=== PATIENT | female | born 1960 | race Caucasian/White ===

== ENCOUNTER 2024-07-05 00:24 | Inpatient (IN) | payer MEDICAID ==
[~2024-07-05] VITALS: Ht 154.9 cm; Wt 53.3 kg
[2024-07-06] MEDS ORDERED: HALOPERIDOL 5 MG TABLET PO PRN (00:45)
[2024-07-06] MEDS ORDERED: LORazepam 2 MG TABLET PO PRN (00:45)
[2024-07-06] MEDS ORDERED: ZOLPIDEM TARTRATE 10 MG TABLET PO PRN (00:45)
[2024-07-06 01:40] LABS: GLUCOMETER DEV NAME(LOC) POC.BV; POC SARS-COV2 AG, FIA NEGATIVE (NEGATIVE)
[2024-07-06 02:09] VITALS: BP 150/68; PULSE 54; RESP 18; TEMP 96.8; O2SAT 98
[2024-07-06] MEDS ORDERED: ONDANSETRON 4 MG TABLET PO PRN (06:00)
[2024-07-06] MEDS ORDERED: IBUPROFEN 600 MG TABLET PO PRN (06:00)
[2024-07-06] MEDS ORDERED: OMEPRAZOLE 20 MG CAPSULE PO PRN (06:00)
[2024-07-06] MEDS ORDERED: ACETAMINOPHEN 325 MG TABLET PO PRN (06:00)
[2024-07-06] MEDS ORDERED: MAGNESIUM HYDROXIDE SUSPENSION 30 ML UDCUP PO PRN (06:00)
[2024-07-06] MEDS ORDERED: DOCUSATE SODIUM 100 MG CAPSULE PO PRN (06:00)
[2024-07-06] MEDS ORDERED: BENZOCAINE/MENTHOL LOZENGE PO PRN (06:00)
[2024-07-06] MEDS ORDERED: MAG HYDROX/ALUMINUM HYD/SIMETH ES 30 ML SUSPENSION UDCUP PO PRN (06:00)
[2024-07-06] MEDS ORDERED: ALBUTEROL SULFATE HFA 90 MCG/PUFF 8 GM INHALER IH PRN (06:00)
[2024-07-06] MEDS ORDERED: CloNIDine HCL 0.1 MG TABLET PO PRN (06:00)
[2024-07-06] MEDS ORDERED: LOPERAMIDE HCL 2 MG CAPSULE PO PRN (06:00)
[2024-07-06] MEDS ORDERED: PETROLATUM,WHITE 28 GM JELLY TP PRN (06:00)
[2024-07-06] MEDS ORDERED: BACITRACIN 28 GM OINTMENT TP PRN (06:00)
[2024-07-06 08:21] VITALS: BP 141/73; PULSE 69; RESP 16; TEMP 96.9; O2SAT 97
[2024-07-06] MEDS: INFLUENZA VIRUS VACCINE TVS (6MO+) 2024-25/PF 45 MCG/0.5 ML SYRINGE IM. ONE (10:20)
[2024-07-06 23:08] VITALS: BP 116/69; PULSE 54; RESP 18; TEMP 98.5; O2SAT 95
[2024-07-07] MEDS: ARIPiprazole 10 MG TABLET PO SCH (08:25)
[2024-07-07 13:28] VITALS: BP 118/66; PULSE 70; RESP 16; TEMP 97.2; O2SAT 99
[2024-07-07 20:33] VITALS: BP 139/77; PULSE 65; RESP 17; TEMP 98; O2SAT 98
[2024-07-08 08:16] VITALS: BP 124/69; PULSE 65; RESP 16; TEMP 97.3; O2SAT 95
[2024-07-09 00:04] VITALS: BP 142/75; PULSE 63; RESP 16; TEMP 98.1; O2SAT 96
[2024-07-09 08:22] VITALS: BP 116/71; PULSE 69; RESP 16; TEMP 96.6; O2SAT 95
[2024-07-09 20:05] VITALS: BP 116/70; PULSE 79; RESP 18; TEMP 98; O2SAT 100
[2024-07-10 08:40] VITALS: BP 128/87; PULSE 69; RESP 16; TEMP 97.2; O2SAT 96
[2024-07-10 10:43] LABS: BASOPHILS % (AUTO) 0.7 % (0.0-2.0); EOSINOPHILS % (AUTO) 1.9 % (1.0-6.0); HEMATOCRIT 47.4 % (36-46); HEMOGLOBIN 15.8 g/dL (12.0-16.0); LYMPHOCYTES % (AUTO) 39.6 % (22.0-44.0); MEAN CORPUSCULAR HEMOGLOBIN 29.5 pg (26.0-34.0); MEAN CORPUSCULAR HGB CONC 33.3 G/dL (31.0-37.0); MEAN CORPUSCULAR VOLUME 89 fL (80-100); MONOCYTES # (AUTO) 0.4 K/uL (0.1-1.0); NEUTROPHILS % (AUTO) 52.8 % (40.0-70.0); PLATELET COUNT (AUTO) 289 K/uL (150-450); RED BLOOD CELL COUNT(AUTO) 5.36 MIL/uL (4.00-5.20); RED CELL DISTRIBUTION WIDTH 13.2 % (11.5-14.5); WHITE BLOOD COUNT (AUTO) 7.5 K/uL (4.5-11.0)
[2024-07-10 20:18] VITALS: BP 130/77; PULSE 86; RESP 18; TEMP 97.8; O2SAT 97
[2024-07-11 08:17] VITALS: BP 119/71; PULSE 62; RESP 16; TEMP 97; O2SAT 97
[2024-07-11] MEDS: ARIPiprazole 15 MG TABLET PO SCH (08:59)
[2024-07-11] MEDS: ARIPiprazole ER SUSPENSION 400 MG PRE-FILLED DUAL CHAMBER SYRINGE IM ONE (09:51)
[2024-07-11] MEDS ORDERED: ARIP400S3 IM (11:25)
[2024-07-11] MEDS ORDERED: ARIP15TA27 PO (11:25)
[2024-08-08] MEDS ORDERED: ARIPiprazole ER SUSPENSION 400 MG PRE-FILLED DUAL CHAMBER SYRINGE IM SCH (09:00)
== END 2024-07-11 16:05 | disposition home or self-care (01) | DRG 750 ==
LOC: EDBD → B3A 07-06 00:39
PROVIDERS: ADMIT Psychiatry & Neurology Child & Adolescent Psychiatry; ATTEND Psychiatry & Neurology Psychiatry
PROC: GZ52ZZZ Individual Psychotherapy, Cognitive (ICD-10-PCS; principal; 2024-07-07)
PROC: GZ56ZZZ Individual Psychotherapy, Supportive (ICD-10-PCS; 2024-07-07)
DX: F20.9 Schizophrenia, unspecified (principal); F41.9 Anxiety disorder, unspecified; G47.00 Insomnia, unspecified; K59.00 Constipation, unspecified; I10 Essential (primary) hypertension; Z20.822 Contact with and (suspected) exposure to COVID-19
CPT/HCPCS: 85025; J0401